=== PATIENT | male | born 1990 | race Caucasian/White ===

== ENCOUNTER 2019-05-27 14:03 | Emergency (ER) | payer OTHER ==
[~2019-05-27] VITALS: Ht 182.9 cm; Wt 126.1 kg
[~2019-05-27 14:03] MED LIST: HYZAAR 100-121 UDTAB
== END 2019-05-27 18:52 | disposition home or self-care (01) ==
LOC: ER 14:03
DX: B34.8 Other viral infections of unspecified site (principal); J45.901 Unspecified asthma with (acute) exacerbation

== ENCOUNTER 2024-01-04 16:59 | Emergency (ER) | payer OTHER ==
[~2024-01-04] VITALS: Ht 182.9 cm; Wt 106.6 kg
[2024-01-04] MEDS ORDERED: LOPRESSOR25 MG PO (18:12)
[2024-01-04] MEDS ORDERED: AVALIDE 300-121 EACH PO (18:12)
[2024-01-04] MEDS ORDERED: KETOROLAC TROMETHAMINE 30 MG VIAL IM STA (18:24)
== END 2024-01-04 20:25 | disposition home or self-care (01) ==
LOC: ER 17:00
DX: S39.82XA Other specified injuries of lower back, initial encounter (principal); V49.88XA Car occupant (driver) (passenger) injured in other specified transport accidents, initial encounter; Y92.413 State road as the place of occurrence of the external cause; Y93.84 Activity, sleeping; G89.11 Acute pain due to trauma